=== PATIENT | male | born 1980 ===

== ENCOUNTER 2022-03-20 14:17 | Emergency (ER) | payer OTHER ==
[~2022-03-20] VITALS: Ht 172.7 cm; Wt 76.2 kg
[2022-03-20] MEDS ORDERED: DICLOFENAC SODI75 MG PO (18:22)
== END 2022-03-20 18:35 | disposition home or self-care (01) ==
LOC: ER 14:17
DX: S20.219A Contusion of unspecified front wall of thorax, initial encounter (principal); S22.32XA Fracture of one rib, left side, initial encounter for closed fracture; W05.1XXA Fall from non-moving nonmotorized scooter, initial encounter; Y93.89 Activity, other specified; Y92.89 Other specified places as the place of occurrence of the external cause; Y99.9 Unspecified external cause status